=== PATIENT | female | born 1930 | race Caucasian/White ===

== ENCOUNTER → 2019-02-27 | Day surgery (SDC) | payer MEDICARE, OTHER ==
[~2019-02-27] MED LIST: ACETAMINOPHEN 500 MG TAB PO
== END | disposition home or self-care (01) ==
LOC: SDS 05:41
DX: M79.674 Pain in right toe(s) (principal); Z53.09 Procedure and treatment not carried out because of other contraindication; Z79.02 Long term (current) use of antithrombotics/antiplatelets; Z79.82 Long term (current) use of aspirin